=== PATIENT | female | born 1985 | race Caucasian/White ===

== ENCOUNTER 2016-06-08 22:48 | Outpatient (CLI) | payer OTHER ==
[~2016-06-08] VITALS: Ht 175.3 cm; Wt 66.7 kg
[~2016-06-08 22:48] MED LIST: ATARAX,VISTARIL50 MG PO; BACTRIM,SEPT1 TABLET PO; CELEXA20 MG PO; CIPRO; CIPRO500 MG PO; CLEOCIN300 MG PO; CORTISONE57 GM TP; CRANBERRY450 M3 PO; MULTI-DAY VITA1 EACH PO; NOHOMEMEDS; NORCO 5/3251 TABLET PO; PYRIDIUM200 MG PO; ROXICODONE5 MG PO; TYLOX 5-500 CA1 EACH PO; XANAX0.5 MG PO
[2016-06-08] MEDS ORDERED: FISH OIL300 MG PO (23:15)
[2016-06-08] MEDS ORDERED: PRENATAL TABLE1 EAC3 PO (23:15)
[2016-06-08] MEDS ORDERED: METHADONE10 MG PO (23:16)
[2016-06-08 23:53] VITALS: BP 124/75
[2016-06-09 03:51] VITALS: BP 117/60
[2016-06-09 07:04] VITALS: BP 122/85
== END 2016-06-09 11:30 | disposition home or self-care (01) ==
LOC: EME 22:48 → LDRP-OP 22:48 → EME 22:48 → 2WEST 22:49 → LDRP-OP 22:49 → EDSTATUS 06-09 01:15 → EME 06-09 01:35 → 2WEST 06-09 01:47 → LDRP-OP 09-19 11:32
DX: O26.893 Other specified pregnancy related conditions, third trimester (principal); R51 Headache; R10.9 Unspecified abdominal pain; O9A.213 Injury, poisoning and certain other consequences of external causes complicating pregnancy, third trimester; T14.8 Other injury of unspecified body region; Z3A.29 29 weeks gestation of pregnancy; Y92.009 Unspecified place in unspecified non-institutional (private) residence as the place of occurrence of the external cause; Y04.8XXA Assault by other bodily force, initial encounter; Y07.01 Husband, perpetrator of maltreatment and neglect; Y99.9 Unspecified external cause status; O99.333 Smoking (tobacco) complicating pregnancy, third trimester; F17.210 Nicotine dependence, cigarettes, uncomplicated; O99.323 Drug use complicating pregnancy, third trimester; F11.20 Opioid dependence, uncomplicated; O98.413 Viral hepatitis complicating pregnancy, third trimester; B19.20 Unspecified viral hepatitis C without hepatic coma
CPT/HCPCS: 59025; 76805; 85460; G0378

== ENCOUNTER 2016-08-03 21:56 | Inpatient (IN) | payer OTHER ==
[~2016-08-03] VITALS: Ht 162.6 cm; Wt 72.0 kg
[~2016-08-03 21:56] MED LIST changes: +FISH OIL300 MG PO; +METHADONE10 MG PO; +PRENATAL TABLE1 EAC3 PO
[2016-08-03 22:11] VITALS: BP 139/73
[2016-08-03 22:57] LABS: EOSINOPHIL (%) 0.5 % (0-5); EOSINOPHIL COUNT 0.1 K/uL (0-0.3); HEMATOCRIT 36.5 % (36.0-46.0); IMMATURE GRANULOCYTE (%) 0.6 % (0.0-0.7); IMMATURE GRANULOCYTE COUNT 0.1 K/uL; INSTRUMENT ABS NEUTROPHIL CT 13.2 K/uL; LYMPHOCYTE COUNT 2.8 K/uL (1.0-2.8); MCH 32.1 PG (29.0-34.0); MCV 94.6 FL (83-99); MEAN PLAT.VOLUME 10.5 uM^3 (9.5-12.4); MONOCYTE (%) 6.6 % (3-12); MONOCYTE COUNT 1.2 K/uL (0-0.8); NEUTROPHIL (%) 75.8 % (45-76); NEUTROPHIL COUNT 13.2 K/uL (1.8-6.4); PLATELET COUNT 196 K/uL (156-360); RBC DIS.WIDTH-CV 13.2 % (11.8-14.6); RBC DIS.WIDTH-SD 45.2 % (39-53); RED BLOOD COUNT 3.86 M/uL (3.80-5.20); WHITE BLOOD COUNT 17.4 K/uL (4.1-10.2)
[2016-08-03 23:52] VITALS: BP 118/58
[2016-08-04] VITALS (19 sets, daily range): BP systolic 98–179; BP diastolic 55–97
[2016-08-04 00:14] LABS: CHLORIDE 104 mEq/L (99-109); POTASSIUM 4.1 mEq/L (3.7-5.4); SODIUM 137 mEq/L (136-147)
[2016-08-04 00:16] LABS: GLUCOSE 128 mg/dL (70-99)
[2016-08-04 00:18] LABS: ANION GAP 13 MEQ/L (2-14); TOTAL BILIRUBIN 0.4 mg/dL (0.0-1.0)
[2016-08-04 00:20] LABS: ALKALINE PHOSPHATASE 262 IU/L (3-129); GFR ESTIMATE (CALCULATED) > 59 mL/min/
[2016-08-04 00:21] LABS: UREA NITROGEN (BUN) 9 mg/dL (9-23)
[2016-08-04 00:59] LABS: ADD MEDTOX COMMENT Y; AMPHETAMINE NEGATIVE (500 ng/mL); BARBITURATES NEGATIVE (200 ng/mL); BENZODIAZEPINES NEGATIVE (150 ng/mL); COCAINE NEGATIVE (150 ng/mL); INTERNAL CONTROLS VALID? YES; METHADONE PRESUMPTIVE POSITIVE (200 ng/mL); METHAMPHETAMINE NEGATIVE (500 ng/mL); OPIATES (MORPHINE) NEGATIVE (100 ng/mL); OXYCODONE NEGATIVE (100 ng/mL); PHENCYCLIDINE NEGATIVE (25 ng/mL); PROPOXYPHENE NEGATIVE (300 ng/mL); THC CANNABINOIDS PRESUMPTIVE POSITIVE (50 ng/mL); TRICYCLIC ANTIDEPRESSANTS NEGATIVE (300 ng/mL)
[2016-08-05] MEDS ORDERED: METHADONE 22 MG/1 ML PO (04:33)
[2016-08-05 06:59] VITALS: BP 126/76
[2016-08-05 15:10] VITALS: BP 115/82
== END 2016-08-05 15:50 | disposition home or self-care (01) | DRG 774 ==
LOC: LDRP-OP 21:56 → 2WEST 21:57 → LDRP-OP 09-19 12:36
PROVIDERS: Nurse Practitioner
DX: O98.42 Viral hepatitis complicating childbirth (principal); O99.324 Drug use complicating childbirth; B19.20 Unspecified viral hepatitis C without hepatic coma; F17.210 Nicotine dependence, cigarettes, uncomplicated; O99.334 Smoking (tobacco) complicating childbirth; Z37.0 Single live birth; Z3A.37 37 weeks gestation of pregnancy; O76 Abnormality in fetal heart rate and rhythm complicating labor and delivery; O98.52 Other viral diseases complicating childbirth; B00.9 Herpesviral infection, unspecified; F11.90 Opioid use, unspecified, uncomplicated; O09.33 Supervision of pregnancy with insufficient antenatal care, third trimester; Z63.5 Disruption of family by separation and divorce
CPT/HCPCS: 80053; 84999; 85025; G0378; J3010; J7120

== ENCOUNTER 2017-07-08 11:49 | Emergency (ER) | payer OTHER ==
[~2017-07-08] VITALS: Ht 157.5 cm; Wt 42.4 kg
[~2017-07-08 11:49] MED LIST changes: +INDOCIN25 MG PO; +METHADONE 22 MG/1 ML PO
[2017-07-08 13:33] LABS: APPEARANCE SL.HAZY ((CLEAR)); BILIRUBIN NEGATIVE; BLOOD NEGATIVE; COLOR YELLOW ((YELLOW)); GLUCOSE (STRIP) 150; KETONES NEGATIVE; LEUKOCYTES SMALL; NITRITE NEGATIVE; PROTEIN (STRIP) 100; SPECIFIC GRAVITY 1.016 (1.000-1.030); UROBILINOGEN 0.2 MG/DL (0.2-1.0)
[2017-07-08 13:41] LABS: BACTERIA RARE /HPF; EPITHELIAL CELLS 1+ /HPF; HYALINE CASTS 0-5 /LPF; MUCUS TRACE /LPF; RED BLOOD CELLS 0-5 /HPF (0-5)
[2017-07-08 13:43] LABS: AMPHETAMINE NEGATIVE (500 ng/mL); BARBITURATES NEGATIVE (200 ng/mL); BENZODIAZEPINES PRESUMPTIVE POSITIVE (150 ng/mL); BUPRENORPHINE PRESUMPTIVE POSITIVE (10 ng/mL); COCAINE NEGATIVE (150 ng/mL); METHADONE PRESUMPTIVE POSITIVE (200 ng/mL); METHAMPHETAMINE NEGATIVE (500 ng/mL); OPIATES (MORPHINE) NEGATIVE (100 ng/mL); OXYCODONE NEGATIVE (100 ng/mL); PHENCYCLIDINE NEGATIVE (25 ng/mL); PROPOXYPHENE NEGATIVE (300 ng/mL); THC CANNABINOIDS PRESUMPTIVE POSITIVE (50 ng/mL); TRICYCLIC ANTIDEPRESSANTS NEGATIVE (300 ng/mL)
[2017-07-08 14:21] LABS: BENZODIAZEPINES, URINE SCREEN POSITIVE (200 ng/mL)
[2017-07-08 15:02] LABS: HEMATOCRIT 41.2 % (36.0-46.0); HEMOGLOBIN 14.8 G/DL (11.9-15.5); MCH 35.3 PG (29.0-34.0); MCHC 35.9 G/DL (30.0-36.0); MCV 98.3 FL (83-99); PLATELET COUNT 135 K/uL (156-360); RBC DIS.WIDTH-CV 11.9 % (11.8-14.6); RBC DIS.WIDTH-SD 43.6 % (39-53); RED BLOOD COUNT 4.19 M/uL (3.80-5.20); WHITE BLOOD COUNT 12.2 K/uL (4.1-10.2)
[2017-07-08 15:15] LABS: CHLORIDE 103 mEq/L (99-109); POTASSIUM 3.3 mEq/L (3.7-5.4); SODIUM 137 mEq/L (136-147)
[2017-07-08 15:18] LABS: GLUCOSE 107 mg/dL (70-99); TOTAL PROTEIN 7.5 g/dL (6.4-8.3)
[2017-07-08 15:19] LABS: TOTAL BILIRUBIN 1.6 mg/dL (0.0-1.0)
[2017-07-08 15:20] LABS: SERUM ETHYL ALCOHOL < 10 mg/dL
[2017-07-08 15:21] LABS: ALKALINE PHOSPHATASE 104 IU/L (3-129); CREATININE 0.7 mg/dL (0.6-1.3); GFR ESTIMATE (CALCULATED) > 59 mL/min/
[2017-07-08 15:22] LABS: UREA NITROGEN (BUN) 5 mg/dL (9-23)
[2017-07-08 15:23] LABS: AST (GOT) 93 IU/L (2-34)
[2017-07-08 15:24] LABS: ALT (GPT) 88 IU/L (3-49); CREATINE KINASE 39 IU/L (1-294); TOTAL CK 39 IU/L (1-294)
[2017-07-08 15:32] LABS: TROP-I INTERPRETATION NEGATIVE; TROPONIN-I < 0.01 ng/mL (0.0-0.30)
[2017-07-08 15:33] LABS: QUANTITATIVE HCG < 4.0 MIU/ML
[2017-07-08 15:34] LABS: CKMB RELATIVE INDEX 2.6 (0.0-3.9)
[2017-07-08 16:56] VITALS: BP 134/83
== END 2017-07-08 17:36 | disposition home or self-care (01) ==
LOC: EME 11:49
PROVIDERS: Nurse Practitioner Family
DX: R41.82 Altered mental status, unspecified (principal); F11.20 Opioid dependence, uncomplicated; F12.90 Cannabis use, unspecified, uncomplicated; D69.6 Thrombocytopenia, unspecified; R74.0 Nonspecific elevation of levels of transaminase and lactic acid dehydrogenase [LDH]; F41.9 Anxiety disorder, unspecified; M54.2 Cervicalgia; G89.29 Other chronic pain; Z87.440 Personal history of urinary (tract) infections; Z88.6 Allergy status to analgesic agent; F17.200 Nicotine dependence, unspecified, uncomplicated; Z88.0 Allergy status to penicillin
CPT/HCPCS: 70450; 72125; 80053; 81003; 82550; 82553; 84484; 84702; 84999; 85027; 90839; 93005; 99281; 99285; G0480; J2405; Q0177

== ENCOUNTER 2017-07-22 12:01 | Emergency (ER) | payer OTHER ==
[~2017-07-22] VITALS: Ht 175.3 cm; Wt 55.6 kg
[2017-07-22 14:30] VITALS: BP 140/100
== END 2017-07-22 14:31 | disposition home or self-care (01) ==
LOC: EME 12:01
PROVIDERS: Emergency Medicine
DX: R56.9 Unspecified convulsions (principal); Z63.5 Disruption of family by separation and divorce; G89.29 Other chronic pain; Z79.891 Long term (current) use of opiate analgesic; F17.200 Nicotine dependence, unspecified, uncomplicated
CPT/HCPCS: 81025; 93005; 99281; 99284

== ENCOUNTER 2017-10-05 13:20 | Emergency (ER) | payer OTHER ==
[~2017-10-05] VITALS: Ht 175.3 cm; Wt 55.9 kg
[2017-10-05 14:16] LABS: BASOPHIL (%) 0.2 % (0-1); EOSINOPHIL (%) 0.4 % (0-5); HEMATOCRIT 42.6 % (36.0-46.0); HEMOGLOBIN 15.3 G/DL (11.9-15.5); IMMATURE GRANULOCYTE (%) 0.1 % (0.0-0.7); LYMPHOCYTE (%) 13.3 % (15-42); LYMPHOCYTE COUNT 1.1 K/uL (1.0-2.8); MCH 35.2 PG (29.0-34.0); MCHC 35.9 G/DL (30.0-36.0); MCV 97.9 FL (83-99); MONOCYTE (%) 4.9 % (3-12); MONOCYTE COUNT 0.4 K/uL (0-0.8); NEUTROPHIL (%) 81.1 % (45-76); NEUTROPHIL COUNT 6.7 K/uL (1.8-6.4); PLATELET COUNT 247 K/uL (156-360); RBC DIS.WIDTH-CV 11.7 % (11.8-14.6); RBC DIS.WIDTH-SD 42.3 % (39-53); RED BLOOD COUNT 4.35 M/uL (3.80-5.20); WHITE BLOOD COUNT 8.3 K/uL (4.1-10.2)
[2017-10-05 14:26] LABS: CHLORIDE 105 mEq/L (99-109); POTASSIUM 3.7 mEq/L (3.7-5.4)
[2017-10-05 14:27] LABS: SODIUM 139 mEq/L (136-147)
[2017-10-05 14:28] LABS: GLUCOSE 117 mg/dL (70-99)
[2017-10-05 14:32] LABS: CREATININE 0.7 mg/dL (0.6-1.3); GFR ESTIMATE (CALCULATED) > 59 mL/min/
[2017-10-05 14:33] LABS: UREA NITROGEN (BUN) 8 mg/dL (9-23)
[2017-10-05] MEDS ORDERED: DOXYCYCLINE HY100 M3 PO (15:09)
[2017-10-05 15:30] VITALS: BP 126/99
[2017-10-06 09:56] LABS: LYME DISEASE SEROLOGY SCREEN NEGATIVE (NEGATIVE)
== END 2017-10-05 15:33 | disposition home or self-care (01) ==
LOC: EME 13:20
PROVIDERS: Emergency Medicine
DX: T78.40XA Allergy, unspecified, initial encounter (principal); A26.0 Cutaneous erysipeloid; F17.200 Nicotine dependence, unspecified, uncomplicated; Z88.0 Allergy status to penicillin; Z88.6 Allergy status to analgesic agent; Z91.040 Latex allergy status; Z91.030 Bee allergy status
CPT/HCPCS: 80048; 85025; 86618; 99281; 99285; J1100; J1200; S0028

== ENCOUNTER 2017-10-21 07:09 | Emergency (ER) | payer SELFPAY ==
[~2017-10-21] VITALS: Ht 175.3 cm; Wt 52.8 kg
[~2017-10-21 07:09] MED LIST changes: +DOXYCYCLINE HY100 M3 PO
[2017-10-21] MEDS ORDERED: PREDNISONE50 MG PO (08:53)
[2017-10-21 09:11] VITALS: BP 123/96
== END 2017-10-21 09:11 | disposition home or self-care (01) ==
LOC: EME 07:09
DX: L50.0 Allergic urticaria (principal); F17.200 Nicotine dependence, unspecified, uncomplicated; Z87.440 Personal history of urinary (tract) infections; Z79.891 Long term (current) use of opiate analgesic; Z91.040 Latex allergy status; Z91.030 Bee allergy status; Z88.0 Allergy status to penicillin; Z88.6 Allergy status to analgesic agent
CPT/HCPCS: 99281; 99284; J1200; J2930; S0028